=== PATIENT | female | born 2000 ===

== ENCOUNTER 2024-06-25 12:57 | Emergency (ER) | payer MEDICAID ==
[~2024-06-25] VITALS: Ht 175.3 cm; Wt 58.2 kg
[2024-06-25 13:00] VITALS: BP 105/67; PULSE 69; RESP 16; TEMP 98.3; O2SAT 100
[2024-06-25] MEDS ORDERED: FERR325T27 PO (13:02)
[2024-06-25 13:25] LABS: APPEARANCE,URINE HAZY (CLEAR); BILIRUBIN,URINE NEGATIVE (NEGATIVE); COLOR,URINE YELLOW (YELLOW); GLUCOSE, URINE (UA) NEGATIVE (NEGATIVE); KETONES,URINE NEGATIVE (NEGATIVE); LEUKOCYTE ESTERASE ,URINE LARGE (NEGATIVE); NITRATE,URINE NEGATIVE (NEGATIVE); OCCULT BLOOD,URINE LARGE (NEGATIVE); PH,URINE 5.5 (5.0-8.0); PROTEIN,URINE 100-200,SEE CONFIRM mg/dL (NEGATIVE); SPECIFIC GRAVITIY, URINE 1.022 (1.003-1.030); UROBILINOGEN,URINE <=1.0 mg/dL (<=1.0)
[2024-06-25] MEDS ORDERED: NITR-166 PO ×2 (13:32→13:46)
[2024-06-25 13:36] LABS: BACTERIA,URINE Few /HPF (None Seen); SQUAMOUS EPITHELIAL CELL,UR Few /LPF (None Seen); SULFOSALICYLIC ACID,URINE 2+ (Negative); WBC,URINE 26-50 /HPF (0-5)
== END 2024-06-25 13:55 | disposition home or self-care (01) ==
LOC: EMS 12:57
DX: R30.0 Dysuria (principal); R39.15 Urgency of urination
CPT/HCPCS: 81001; 81002; 87086; 99283